=== PATIENT | female | born 1980 | race African-American/Black ===

== ENCOUNTER 2024-01-04 18:50 | Outpatient (REF) | payer BC, MEDICAID, SELFPAY | END 2024-01-04 18:51 | disposition home or self-care (01) | LOC: LAB 18:50 | PROVIDERS: Visit Provider Obstetrics & Gynecology | DX: Z01.419 Encounter for gynecological examination (general) (routine) without abnormal findings (principal) | CPT/HCPCS: 87624; 88175 ==

== ENCOUNTER 2025-02-11 19:20 | Outpatient (REF) | payer BC, MEDICAID, SELFPAY ==
--- OUTSIDE RECORDS SUMMARY | 2025-02-11 15:00 | XMS_ITS | Encounter Summary ---
Author Organization [facility] Address [address] [place] [address] Care Team Providers Care Snagger Name Role Phone Myranda Wilkins MD Unavailable Reason for Visit * Reason Comments Well Women Visit Encounter Details Date Type Department Care Team (Late st Contact Info) Description 02/11/2025 3:00 PM EDT Office Visit [facility] [address] [place] [id number] Lennie Streeter PA [address] [place] [address] Well woman exam with routine gynecological exam; Breast cancer screening by mammogram Social History Tobacco Use Types Packs/Day Years Used Date Smoking Tobacco: Never Assessed Comments No Sex and Gender Information Value Date Recorded Sex Assigned at Not on file Legal Sex Female 7:39 PM EDT Gender Identity Not on file Sexual Orientation Not on file documented as of this encounter Last Filed Vital Signs Vital Sign Reading Time Taken Comments Blood Pressure 112/70 02/11/2025 3:06 PM EDT Pulse - - Temperature - - Respiratory Rate - - Oxygen Saturation - - Inhaled Oxygen Concentration - - Weight 61.1 kg (134 lb 12.8 oz) 02/11/2025 3:06 PM EDT Height - - Body Mass Index 23.88 01/04/2024 9:17 AM EDT documented in this encounter Progress Notes * JUDIT Tillman - 02/11/2025 3:00 PM EDT Reason for Appointment: Patient ID: Haley Juárez is a 44 y.o. female who presents for Well Women Visit Patient presents today for Annual Exam. MEDICATIONS Current Outpatient Medications Medication Instructions amphetamine-dextroamphetamine XR (Adderall XR) 15 MG 24 hr capsule 15 mg, Oral, Every morning ALLERGIES Allergies Allergen Reactions Ketoconazole Other reaction(s): Unknown PROBLEMS Active Ambulatory Problems Diagnosis Date Noted No Active Ambulatory Problems Resolved Ambulatory Problems Diagnosis Date Noted No Resolved Ambulatory Problems Past Medical History: Diagnosis Date History of HPV infection HISTORY PAST MEDICAL HISTORY SOCIAL HISTORY Past Medical History: Diagnosis Date History of HPV infection Social History Tobacco Use Smoking status: Not on file Smokeless tobacco: Not on file Substance Use Topics Alcohol use: Not on file Drug use: Not on file FAMILY HISTORY No family history on file. SURGICAL HISTORY Past Surgical History: Procedure Laterality Date SECTION, LOW TRANSVERSE REVIEW OF SYSTEMS Review of Systems: Review of Systems Constitutional: Negative. HENT: Negative. Eyes: Negative. Respiratory: Negative. Cardiovascular: Negative. Gastrointestinal: Negative. Genitourinary: Negative. Musculoskeletal: Negative. Skin: Negative. Neurological: Negative. All other systems reviewed and are negative. Hematological: Negative. Endocrine: Negative. Allergic/Immunologic: Negative. OBJECTIVE Objective: Physical Exam Constitutional: Appearance: Normal appearance. She is well-developed. Genitourinary: Vulva normal. Right Adnexa: not tender and no mass present. Left Adnexa: not tender and no mass present. No cervical discharge. Breasts: Breasts are soft. Right: Normal. Left: Normal. HENT: Head: Normocephalic. Nose: Nose normal. Mouth/Throat: Mouth: Mucous membranes are moist. Cardiovascular: Rate and Rhythm: Normal rate and regular rhythm. Pulmonary: Effort: Pulmonary effort is normal. Breath sounds: Normal breath sounds. Abdominal: General: Bowel sounds are normal. There is no distension. Palpations: Abdomen is soft. Tenderness: There is no abdominal tenderness. There is no guarding or rebound. Musculoskeletal: General: No swelling. Normal range of motion. Cervical back: Normal range of motion. Right lower leg: No edema. Left lower leg: No edema. Neurological: General: No focal deficit present. Mental Status: She is alert and oriented to person, place, and time. Skin: General: Skin is warm and dry. Psychiatric: Mood and Affect: Mood normal. Behavior: Behavior normal. Vitals and nursing note reviewed. Exam conducted with a dicer operator present. Vitals: Estimated body mass index is 23.88 kg/m?? as calculated from the following: Height as of 01/04/24: 5' 3 . Weight as of this encounter: 134 lb 12.8 oz. BP: 112/70 No LMP recorded (within months). ASSESSMENT & PLAN ICD-10-CM 1. Well woman exam with routine gynecological exam Z01.419 THIN PREP TIS PAP AND HR HPV DNA 2. Breast cancer screening by mammogram Z12.31 Bilateral screening mammogram Bilateral screening mammogram Annual: Patient presents today for an annual exam. Patient states she is doing well and has no complaints. Pap was obtained without difficulty and patient given mammogram order to have scheduled/obtained. Orders Placed This Encounter Procedures Bilateral screening mammogram Follow Up: Patient is to return in one year for annual unless needed otherwise. Documented by Henrietta Figueroa LPN on behalf of: JUDIT Tillman documented in this encounter Plan of Treatment Upcoming Encounters Date Type Department Care Team (Late st Contact Info) Description 02/17/2026 2:00 PM EDT Procedure Visit [facility] [address] [address] Lennie Streeter PA [address] [place] [address] Scheduled Orders Name Type Priority Associated Diagnoses Orde r Schedule Bilateral screening mammogram Imaging Routine Breast cancer screening by mammogram Expected: 02/11/2025 (Approximate), Expires: 04/13/2026 THIN PREP TIS PAP AND HR HPV DNA Pathology and Cytology Routine Well woman exam with routine gynecological exam Ordered: 02/11/2025 documented as of this encounter Visit Diagnoses Diagnosis Well woman exam with routine gynecological exam Routine gynecological examination Breast cancer screening by mammogram documented in this encounter Care Teams Snagger Relationship Specialty Start Date End Date Myranda Wilkins MD [address] [place] [address] PCP - [facility] RADIO REPAIRMAN 10/09/23 documented as of this encounter
--- OUTSIDE RECORDS SUMMARY | 2025-02-11 19:23 | XMS_ITS | Clinical Summary ---
Author Organization [facility] Address [address] [place] [address] Care Team Providers Care Motor Vehicle Assembler Name Role Phone Unavailable Primary Care Provider Unavailabl e Allergies Active Allergy Reactions Criticality Noted Date Comments Ketoconazole 09/03/2012 Other reaction(s): Unknown Medications aspirin-acetamin ophen-caffeine (Excedrin Extra Strength) 250-250-65 mg tablet 1 (one) time each day at the same time. Active Family History Medical History Relation Name Comments No Known Problems Mother Relation Name Status Comments Father Other Mother Alive Social History Tobacco Use Types Packs/Day Years Used Date Smoking Tobacco: Never Smokeless Tobacco: Never Alcohol Use Standard Drinks/Week Comments Never 0 (1 standard drink = 0.6 oz pur e alcohol) Humiliation, Afraid, Rape, and Kick questionnair e Answer Date Recorded Within the last year, have y ou been afraid of your partner or ex-partner? No 03/15/2023 Within the last year, have y ou been humiliated or emotionally abused in other ways by your partner or ex-partner? No Within the last year, have y ou been kicked, hit, slapped, or otherwise physically hurt by your partner or ex-partner? No 03/15/2023 Within the last year, have y ou been raped or forced to have any kind of sexual activity by your partner or ex-partner? No 03/15/2023 Social Connection and Isolation Panel [NHANES] A nswer Date Recorded In a typical week, how many times do you talk on the phone with family, friends, or neighbors? Twice a week 03/15/2023 How often do you get together with friends or re latives? Twice a week 03/15/2023 How often do you attend adventist or orthodox serv ices? Never 03/15/2023 Do you belong to any clubs o r organizations such as adventist groups, unions, fraternal or athletic groups, or school groups? Yes 03/15/2023 How often do you attend meet ings of the clubs or organizations you belong to? Never 03/15/2023 Are you , , di vorced, , never , or living with a partner? Never 03/15/2023 AUDIT-C Answer Date Recorded Q1: How often do you have a drink containing alcohol? Never 03/15/2023 Q2: How many drinks containi ng alcohol do you have on a typical day when you are drinking? Patient does not drink Q3: How often do you have si x or more drinks on one occasion? Never 03/15/2023 Overall Financial Resource Strain (CARDIA) Answe r Date Recorded How hard is it for you to pa y for the very basics like food, housing, medical care, and heating? Not very hard 03/15/2023 [facility] - Occupational Stress Questionnaire Answer Date Recorded Do you feel stress - tense, restless, nervous, or anxious, or unable to sleep at night because your mind is troubled all the time - these days? Not at all 03/15/2023 Exercise Vital Sign Answer Date Recorde d On average, how many days pe r week do you engage in moderate to strenuous exercise (like a brisk walk)? 6 days 03/15/2023 On average, how many minutes do you engage in exercise at this level? 50 min 03/15/2023 NE Safety & Environment Answer Date Rec orded Within the last year, have y ou been afraid of your partner or ex-partner? No 03/15/2023 Within the last year, have y ou been humiliated or emotionally abused in other ways by your partner or ex-partner? No 03/15/2023 Within the last year, have y ou been kicked, hit, slapped, or otherwise physically hurt by your partner or ex-partner? No 03/15/2023 Within the last year, have y ou been raped or forced to have any kind of sexual activity by your partner or ex-partner? No 03/15/2023 Physically or Sexually Abused Not on file Transportation Answer Date Recorded In the past 12 months, has l ack of transportation kept you from medical appointments or from getting medications? No 12/2022 In the past 12 months, has l ack of transportation kept you from meetings, work, or from getting things needed for daily living? No 03/15/2023 Housing Stability Vital Sign Answer Parviz e Recorded In the last 12 months, was t here a time when you were not able to pay the mortgage or rent on time? No 03/15/2023 In the last 12 months, how many places have you lived? 1 03/15/2023 In the last 12 months, was t here a time when you did not have a steady place to sleep or slept in a long-term (including now)? No 03/15/2023 Hunger Vital Sign Answer Date Recorded Within the past 12 months, y ou worried that your food would run out before you got the money to buy more. Never true 03/15/20 23 Within the past 12 months, t he food you bought just didn't last and you didn't have money to get more. Never true 03/15/2023 Comments Unknown Sex and Gender Information Value Date Recorded Sex Assigned at Not on file Legal Sex Female 2:35 PM EDT Gender Identity Not on file Sexual Orientation Not on file Last Filed Vital Signs Vital Sign Reading Time Taken Comments Blood Pressure - - Pulse - - Temperature - - Respiratory Rate - - Oxygen Saturation - - Inhaled Oxygen Concentration - - Weight 61.2 kg (135 lb) 03/15/2023 11:00 AM EDT Height 160 cm (5' 3 ) 03/15/2023 11:00 AM EDT Body Mass Index 23.91 03/15/2023 11:00 AM EDT Plan of Treatment Health Maintenance Due Date Last Done Comments Depression Screening 1992 Varicella Vaccines (1 of 2 - 13+ 2-dose series) 1993 Hepatitis B Vaccines (1 of 3 - 19+ 3-dose series) 1999 Pap Smear 2001 Adult Tetanus 2002 Cervical Cancer Screening 2010 HPV/Cotest 2010 Mammogram 2020 Influenza Vaccine (#1) 2025 Zoster Vaccines (1 of 2) 2030 HIB Vaccines Aged Out No longer eligi ble based on patient's age to complete this topic HPV Vaccines Aged Out No longer eligi ble based on patient's age to complete this topic IPV Vaccines Aged Out No longer eligi ble based on patient's age to complete this topic Meningococcal B Vaccine Aged Out No l onger eligible based on patient's age to complete this topic Meningococcal Vaccine Aged Out No john victoria eligible based on patient's age to complete this topic Pneumococcal Vaccine: Pediat rics (0 to 5 Years) and At-Risk Patients (6 to 64 Years) Aged Out No longer eligible b ased on patient's age to complete this topic Rotavirus Vaccines Aged Out No longer eligible based on patient's age to complete this topic Insurance [employer] MEDICAID [facility]
--- OUTSIDE RECORDS SUMMARY | 2025-02-11 19:23 | XMS_ITS | Clinical Summary ---
Author Organization [facility] Address [address] [place] [address] Care Team Providers Care Batch Weigher Name Role Phone Myranda Wilkins MD Unavailable Allergies Active Allergy Reactions Criticality Noted Date Comments Ketoconazole 09/03/2012 Other reaction(s): Unknown Medications amphetamine-dext roamphetamine XR (Adderall XR) 15 MG 24 hr capsule Take 15 mg by mouth in the morning. Active Encounters Date Type Department Care Team Description 02/11/2025 3:00 PM EDT Office Visit [facility] [address] [place] [address] [place] [address] Lennie Streeter PA Well woman exam with routine gynecological exam; Breast cancer screening by mammogram 02/11/2025 Bamboo flowsheet [facility] [address] [place] [address] [place] [address] Lennie Streeter PA 02/07/2025 Travel from Last 3 Months Social History Tobacco Use Types Packs/Day Years [...] 12.8 oz) 02/11/2025 3:06 PM EDT Height 160 cm (5' 3 ) 01/04/2024 9:17 AM EDT Body Mass Index 23.88 01/04/2024 9:17 AM EDT Plan of Treatment Upcoming Encounters Date Type Department Care Team (Late st Contact Info) Description 02/17/2026 2:00 PM EDT Procedure Visit [facility] [address] [place] [id number] Lennie Streeter PA [address] [place] [address] Health Maintenance Due Date Last Done Comments HPV/Cotest 2010 Mammogram 2020 Influenza Vaccine (#1) 2025 Cervical Cancer Screening 01/03/2027 Pap Smear 01/03/2027 01/04/2024 Procedures Procedure Name Priority Date/Time Associated Diagnosis Comments PAP SMEAR Routine 01/04/2024 12:00 AM EDT from Last 3 Months or Most Recently Relevant to Health Maintenance Results * Pap Smear (01/04/2024 12:00 AM EDT) Swab Cervical swab / Unknown us Jorge Chris DO LAB CYTOLOGY ORDERABLES Final Re sult EXTERNAL LAB from Last 3 Months or Most Recently Relevant to Health Maintenance Insurance BCBS [place] [employer] MEDICAID [place] Care Teams Batch Weigher Relationship Specialty Start Date End Date Myranda Wilkins MD [address] [place] [address] PCP - [facility] JEWEL BEARING TURNER 10/09/23
--- OUTSIDE RECORDS SUMMARY | 2025-02-11 19:23 | XMS_ITS | Clinical Summary ---
Author Organization [facility] [facility] Address [id number] [address] [place] [address] Care Team Providers Care Coconut Jelly Roller Name Role Phone [facility], [facility] Primary Care Provider Allergies No known active allergies Medications No known medications Social History Tobacco Use Types Packs/Day Years Used Date Smoking Tobacco: Never Smokeless Tobacco: Never Alcohol Use Standard Drinks/Week Comments Yes 0 (1 standard drink = 0.6 oz pur e alcohol) occassionally Childcare Answer Date Recorded Childcare Unknown 12/19/2018 Employment Answer Date Recorded Employment Unknown 12/19/2018 Purpose - Life Answer Date Recorded Purpose and direction in life Unknown Comments No Sex and Gender Information Value Date Recorded Sex Assigned at Not on file Legal Sex Female 11:34 AM EDT Gender Identity Not on file Sexual Orientation Not on file Last Filed Vital Signs Vital Sign Reading Time Taken Comments Blood Pressure 138/88 07/17/2017 3:14 PM EST Pulse 85 07/17/2017 3:14 PM EST Temperature 36.8 C (98.2 F) 07/17/2017 3:14 PM EST Respiratory Rate 18 07/17/2017 3:14 PM EST Oxygen Saturation 99% 07/17/2017 3:14 PM EST Inhaled Oxygen Concentration - - Weight 63.5 kg (140 lb) 07/17/2017 3:14 PM EST Height 160 cm (5' 3 ) 07/17/2017 3:14 PM EST Body Mass Index 24.8 07/17/2017 3:14 PM EST Plan of Treatment Health Maintenance Due Date Last Done Comments Depression Screening 1992 Tobacco Screening 1992 Adult BMI Screening 1998 DTaP,Tdap and Td Vaccines (1 - Tdap) 1999 Pap Smear 2001 Influenza Vaccine 03/10/2025 Medical Devices Not on file [place] [address] [facility] MEDICAID Care Teams Coconut Jelly Roller Relationship Specialty Start Date End Date Services, [address] [place] PCP - General Family Medicine 07/17/17
--- OUTSIDE RECORDS SUMMARY | 2025-02-11 19:23 | XMS_ITS | Encounter Summary ---
Author Organization [facility] Address [address] [place] [address] Care Team Providers Care Photograph Retoucher Name Role Phone Myranda Wilkins MD Unavailable Encounter Details Date Type Department Care Team (Latest Contact Info) Description 02/07/2025 Travel Social History Tobacco Use Types Packs/Day Years Used Date Smoking Tobacco: Never Assessed Comments No Sex and Gender Information Value Date Recorded Sex Assigned at Not on file Legal Sex Female 7:39 PM EDT Gender Identity Not on file Sexual Orientation Not on file documented as of this encounter Plan of Treatment Upcoming Encounters Date Type Department Care Team (Late st Contact Info) Description 02/17/2026 2:00 PM EDT Procedure Visit [facility] [address] [place] [address] Lennie Streeter PA [address] [place], [facility] documented as of this encounter Visit Diagnoses Not on filedocumented in this encounter Care Teams Photograph Retoucher Relationship Specialty Start Date End Date Myranda Wilkins MD [address] [place] [address] PCP - [facility] DAIRY FARM WORKER 10/09/23 documented as of this encounter
--- OUTSIDE RECORDS SUMMARY | 2025-02-11 19:23 | XMS_ITS | Patient Health Record ---
Author Organization [facility] Address [address] [place], [place] [id number] Care Team Providers Care Miner Helper Name Role Phone Bety Enriquez Unavailable [phone] Roseanne Renee Unavailable [phone] Allergies Allergen (clinical drug ingredient) Drug/Non Drug Allergy documented on EMR Reaction Allergy Type Onset Date Status ketoconazole Ketoconazole Unknown Drug Allergy 09/03/2012 Active Reason For Referral No Information Medications Medication SIG (Take, Route, Frequency, Duration) Notes Start Date End Date Status Mucinex DM 30-600 MG 1 tablet as needed Orally every 12 hrs; Duration: 15 days 06/13/2023 Not-Taking Mometasone Furoate 50 MCG/ACT 4 sprays (2 sprays in each nostril) Nasally Once a day; Duration: 10 days 06/13/2023 Not-Taking Excedrin Migraine 250-250-65 MG 2 tablets Orally Once a day Not-Taking Amphetamine-Dextroamphet ER 15 MG Oral; Duration: 30 Days Acti ve Amphetamine-Dextroamphet ER 15 MG Oral; Duration: 30 Days Acti ve Social History Tobacco Use: Social History Observation Description Date Details (start date - stop date) Never Smoker NA - NA Sex Assigned At : Social History Observation Description Sex Assigned At Female Alcohol Screen (Audit-C) Question Answer Notes Did you have a drink containing alcohol in the p ast year? No Points 0 Interpretation Negative CAGE-AID Questionnaire (2018 Edition) Question Answer Notes Have you ever felt that you ought to cut down on your drinking or drug use? No patient entered data Have people annoyed you by c riticizing your drinking or drug use? No patient entered data Have you ever felt bad or gu ilty about your drinking or drug use? No patient entered data Have you ever had a drink or used drugs first thing in the morning to steady your nerves or to get rid of a hangover? No patient entered data CAGE-AID Score 0 Interpretation Negative PRAPARE Question Answer Notes Date Completed/Updated: 06/13/2023 hugh nt entered data What is your current housing situation? I have housing patient entered data What is the highest level of school that you have finished? 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 Check all that apply I do not have problems meeting my needs Has lack of transportation k ept you from medical appointments, meetings, work or from getting things needed for daily living? No How often do you see or talk to people that you care about and feel close to? (For example: talking to friends on the phone, visiting friends or family, going to episcopal or club meetings) More than 5 times a week patient entered data How stressed are you? Stress is when someone feels tense, nervous, anxious, or can't sleep at night because their mind is troubled Somewhat patient entered data In the past year have you sp ent more than 2 nights in a row in a correction, correction, fpc center, or juvenile correctional facility? No patient entered ravi a Are you a refugee? No patient en tered data What country are you from? [place] entered data Do you feel physically and emotionally safe where you currently live? Yes patient entered data In the past year, have you b een afraid of your partner or ex-partner? No patient entered data PRAPARE Score: 3 Tobacco Control (Standard) Question Answer Notes Tobacco use: Nonsmoker Additional Findings: Tobacco non-user Current no nsmoker Problems Problem Type SNOMED Code ICD Code Onset Dates Problem Status W/U Status Risk Notes Problem Hypertension (60118203) Hypertension (I10) Active confirmed Comment:-BP at office is wnls, her BP logs are consistently wnls after starting BB -no more tachycardic or pounding heart beats -pt denies any h/a, cp, n/v, abdominal or back pain, dyspnea, orthopnea or vision change at this time - DASH diet education and encouraged to follow low salt, low fat diet, exercise and keep hydrated -may get labs drawn during next visit -cw HCTZ 25mg PO QD and BB 25mg PO QD -f/u in 3 months, Problem Hypertrophic and atrophic condition of skin (L91.9) Active confirmed Comment:Has a skin tag on the chin under the lower lip. Per pt has been since many years and is getting bigger and darker. No other skin lesions. No family h/o skin maliganacy. No excessive exposure to sun. 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 Rash is consistent with Tinea cruris/Corpor is on the left upper thigh. Symptoms have been present for few months. No rash elsewhere in the body. No fever No Chills PLAN: 1. Start Clotrimazole cream BID x 3 weeks. If not better will need to use Terbinafine PO x 10 days. Advised patient on Diagnosid and Treatment. Discussed the plan.,Descrip tion:Tinea cruris Problem Malaise and fatigue (682583488) Symptom, malaise and fatigue (780.7) (780.7) 007 Problem resolved confirmed Vital Signs Heart Rate 92 /min 09/18/2024 Height-cm 161.29 cm 09/18/2024 Blood pressure diastolic 77 mm Hg 09/18/2024 Weight-kg 61.69 kg 09/18/2024 Height 63.50 in 09/18/2024 Blood pressure systolic 116 mm Hg 09/18/2024 Weight 136 lbs 09/18/2024 BMI 23.71 kg/m2 09/18/2024 Encounters Encounter Location Date Provider Diagnosis [facility] [address] [place] [address] [id number] 05/07/2024 Bety Enriquez Necrosis of pulp K04 .1 and Dental caries into dentine K02.62 [facility] [address] [place] [address] [id number] 09/03/2024 Bety Enriquez Dental caries into dentine K02.62 [facility] [address] [place] [address] [id number] 09/18/2024 Bety Enriquez Necrosis of pulp K04 .1 and Encounter for dental examination and cleaning without abnormal findings Z01.[address] [place] [address] [id number] 06/04/2024 Renee Cronin Assessments Encounter Date Diagnosis (ICD Code) Assessment Notes Treatment Notes Treatment Clinical Notes Section Notes 09/03/2024 Dental caries into dentine (ICD-10 - K02.62) 09/18/2024 Necrosis of pulp (ICD-10 - K04.1) 05/07/2024 Necrosis of pulp (ICD-10 - K04.1) 05/07/2024 Dental caries into dentine (ICD-10 - K02.62) 09/18/2024 Encounter for dental examination and cleaning without abnormal findings (ICD-10 - Z01.20) Plan Of Treatment Next Appt Details Provider Name:Bety Enriquez , 04/09/2025 01:30:00 PM, [address] [place] [address], [phone], Insurance Providers Payer Name Payer Address Payer Phone Subscriber Number Group Number Insured Name Patient Relationship to Insured Coverage Start Date Coverage End Date Mary Ceballosbs [address] [place], [place] [phone] [id number] Haley Juárez Self - patient is the insured 2 [employer] [address] [place], [place] [id number] FranckHaley cruz Self - patient is the insured 3 [facility] [address] [place] [address] [id number] Haley Juárez Self - patient is the insured 3 [facility] [address] [address] [place] [address] [phone] [id number] FranckHaley cruz Self - patient is the insured 5 [employer] [facility] [employer] [address] [place], [place] [phone] [id number] FranckHaley cruz Self - patient is the insured 3 Medicaid [facility] [employer] [address] [place] [address] [id number] Haley Juárez Self - patient is the insured 3 Medical (General) History Medical History History ICD Code Disorder, dysthymic (300.4) MEDICAL: No history of significant medic al diseases Symptom, malaise and fatigue (780.7) Tendonitis of wrist, left (resolved 11/2022) undefined Dermatophytosis of groin (resolved 06/13) Symptom, malaise and fatigue (780.7) (re solved 06/13/2023) Surgical History Surgery Date(Month/Year) Section Appendectomy
--- OUTSIDE RECORDS SUMMARY | 2025-02-11 19:23 | XMS_ITS | Encounter Summary ---
Author Organization [facility] Address [address] [place] [address] Care Team Providers Care Powertrain Engineer Name Role Phone Myranda Wilkins MD Unavailable Encounter Details Date Type Department Care Team (Late Contact Info) Description 02/11/2025 Bamboo flowsheet [facility] [address] [place] [address] Lennie Streeter PA [address] [place], [id number] Social History Tobacco Use Types Packs/Day Years Used Date Smoking Tobacco: Never Assessed Comments No Sex and Gender Information Value Date Recorded Sex Assigned at Not on file Legal Sex Female 7:39 PM EDT Gender Identity Not on file Sexual Orientation Not on file documented as of this encounter Plan of Treatment Upcoming Encounters Date Type Department Care Team (Late Contact Info) Description 02/17/2026 2:00 PM EDT Procedure Visit [facility] [address] [place] [address] Lennie Streeter PA [address] [place] [address] documented as of this encounter Visit Diagnoses Not on filedocumented in this encounter Care Teams Powertrain Engineer Relationship Specialty Start Date End Date Myranda Wilkins MD [address] [place] [address] PCP - [facility] 10/09/23 documented as of this encounter
[2025-02-14 15:08] LABS: Age Gdln ACOG Testing Note (.); IGP, Aptima HPV, rfx 16/18,45 Note (.)
== END 2025-02-11 19:21 | disposition home or self-care (01) ==
LOC: LAB 19:20
PROVIDERS: Visit Provider Physician Assistant
DX: Z01.419 Encounter for gynecological examination (general) (routine) without abnormal findings (principal)
CPT/HCPCS: 87624; 88175